=== PATIENT | female | born 1940 | race African-American/Black ===

== ENCOUNTER → 2017-05-05 | Outpatient (CLI) | payer MEDICARE, BC ==
[~2017-05-05] MED LIST: FAMOTIDINE PO; NO MEDICATIONS; PHENERGAN25 MG PO
--- NOTE | ~2017-05-05 | CT138 ---
[facility] A Service of [facility] / [facility] RADIOLOGY TEXT RESULTS PATIENT: JOJO WINN LOCATION: [facility] : 44 UNIT #: [id number] AGE: [address]: MARTIN HARRIS MD SEX: F ORDER DR: [id number] [place] [id number] O MR#: [id number] [facility] #: [id number] NAME: JOJO WINN : 1940 SEX: F STUDY DATE/TIME: 05/05/2017 10:49 UNIT: [facility] ROOM: STUDY DESCRIPTION: CT Lung screening initial Attending Physician: Martin Harris M.D. Referring Physician: Martin Harris M.D. Ordering Physician: Martin Harris M.D. Primary Care Physician: Martin Harris M.D. MEDICAL IMAGING REPORT This report is preliminary unless electronic signature is present. EXAM CT chest INDICATION Lung cancer screening. 76-year-old female is a current smoker with a 30 pack year history of smoking. TECHNIQUE CT of the chest without contrast. Coronal and sagittal reconstructions were obtained. The exam was performed as a low-dose chest CT utilizing lung cancer screening protocol. CTDI volume 2.96 mGy. DLP 106.44 mGy-cm. This CT exam was performed with one or more of the following radiation dose reduction techniques: automatic exposure control, adjustment of mA and/or kV according to patient size, and iterative reconstruction. COMPARISON Lung cancer screening dated 02/26/[address] chest dated 09/29/2012. FINDINGS This is a benign lung cancer screening. There is a small 3.0-4.0 mm pulmonary nodule in the right middle lobe, this is unchanged from 2016 and considered benign. Smaller pulmonary nodules are also unchanged. No new or suspicious nodules. There is moderate emphysema and mild lower lobe predominant bronchiectasis. No focal consolidation. No pathologically enlarged mediastinal or hilar lymph nodes. Thoracic aorta is normal in caliber. There is nonobstructing bilateral renal calculi. [facility] A Service of [facility] RADIOLOGY TEXT RESULTS PATIENT: JOJO WINN [id number] : 44 UNIT #: [id number] AGE: [address]: MARTIN HARRIS MD SEX: F ORDER DR: IMPRESSION 1. Benign lung cancer screening. There are a few small pulmonary nodules that are stable and considered benign when utilizing ACR Lung-RADS classification system. 2. Emphysema and mild bronchiectasis. ACR Lung-RADS classification 2: Benign examination. RECOMMENDATIONS Annual lung cancer screening with low-dose chest CT. Dictated by... Angel Ji M.D. THIS IS AN ELECTRONICALLY VERIFIED REPORT Angel Ji M.D. at 05/05/2017 4:47 PM Jon TD: 05/05/2017 14:43 JOB #: [id number] MEDICAL IMAGING REPORT Page 1 of 1
== END | disposition home or self-care (01) ==
LOC: SCT 10:39
DX: F17.210 Nicotine dependence, cigarettes, uncomplicated (principal); R91.8 Other nonspecific abnormal finding of lung field; J43.9 Emphysema, unspecified; J47.9 Bronchiectasis, uncomplicated
CPT/HCPCS: G0297

== ENCOUNTER → 2017-07-28 | Outpatient (CLI) | payer MEDICARE, BC ==
--- NOTE | ~2017-07-28 | MY30 ---
[facility]. [facility] A Service of [facility] RADIOLOGY TEXT RESULTS PATIENT: JOJO WINN LOCATION: [facility] : 44 UNIT #: [id number] AGE: [address]: MARTIN HARRIS MD SEX: F ORDER DR: [id number] [place] [id number] P MR#: [id number] Acc #: [id number] NAME: JOJO WINN : 1940 SEX: F STUDY DATE/TIME: 07/28/2017 11:16 UNIT: [facility] ROOM: STUDY DESCRIPTION: MY SCREEN VALERI BILAT DIGITAL Attending Physician: Martin Harris M.D. Referring Physician: Martin Harris M.D. Ordering Physician: Martin Harris M.D. Primary Care Physician: Martin Harris M.D. MEDICAL IMAGING REPORT This report is preliminary unless electronic signature is present. EXAM Bilateral digital screening mammogram with CAD DATE: 07/28/2017 HISTORY 76-year-old female with no personal or family history of breast cancer. Patient states right breast pain for 1 week, nipple discharge for years. Patient states right breast pain has improved. Frozen left shoulder. FINDINGS CC and MLO views were obtained of each breast utilizing digital technique and reviewed with an FDA-approved CAD device. Left breast images are the best obtainable due to patient's limited left shoulder range of motion. Heterogeneously dense fibroglandular tissue is present bilaterally, greatest in the anterior two-thirds of each breast. The parenchymal pattern appears similar to prior exam. Oval circumscribed nodules in the upper outer quadrants of each breast, thought most likely to represent benign intramammary lymph nodes, unchanged from 2013. No suspicious microcalcifications. No architectural distortion. IMPRESSION 1. BIRADS 2. Benign findings. Routine bilateral screening mammogram is recommended in 1 year. Patients over the age of 40 are entered into a reminder system with target due date for the next mammogram. A result letter will also be sent to the patient. BIRADS: 2, benign findings. [facility] A Service of [facility] RADIOLOGY TEXT RESULTS PATIENT: JOJO WINN LOCATION: [facility] : 44 UNIT #: [id number] AGE: [address]: MARTIN HARRIS MD SEX: F ORDER DR: Dictated by... Ciara Mora M.D. THIS IS AN ELECTRONICALLY VERIFIED REPORT Ciara Mora M.D. at 07/31/2017 8:34 AM ASIA/giovanni TD: 07/28/2017 22:02 JOB #: [id number] MEDICAL IMAGING REPORT Page 1 of 1
== END | disposition home or self-care (01) ==
LOC: SMAM 07:39
DX: Z12.31 Encounter for screening mammogram for malignant neoplasm of breast (principal)
CPT/HCPCS: G0202